=== PATIENT | male | born 1960 | race Caucasian/White ===

== ENCOUNTER 2017-01-30 19:22 | Emergency (ER) | payer OTHER | END 2017-01-30 23:20 | disposition home or self-care (01) | LOC: ER 19:22 | DX: S80.01XA Contusion of right knee, initial encounter (principal); W19.XXXA Unspecified fall, initial encounter; Y92.009 Unspecified place in unspecified non-institutional (private) residence as the place of occurrence of the external cause; Q72.0 Congenital complete absence of lower limb; Q33.3 Agenesis of lung; Q60.0 Renal agenesis, unilateral; Z79.899 Other long term (current) drug therapy; Z88.1 Allergy status to other antibiotic agents; Z88.8 Allergy status to other drugs, medicaments and biological substances | CPT/HCPCS: 73564; 73700; 99283-25 ==

== ENCOUNTER 2017-02-21 19:15 | Emergency (ER) | payer OTHER | END 2017-02-21 20:46 | disposition home or self-care (01) | LOC: ER 19:15 | DX: S69.92XA Unspecified injury of left wrist, hand and finger(s), initial encounter (principal); X50.0XXA Overexertion from strenuous movement or load, initial encounter; Y93.E9 Activity, other interior property and clothing maintenance; Y92.009 Unspecified place in unspecified non-institutional (private) residence as the place of occurrence of the external cause; J45.909 Unspecified asthma, uncomplicated; Z87.442 Personal history of urinary calculi; Z88.0 Allergy status to penicillin; Z88.1 Allergy status to other antibiotic agents; Z79.899 Other long term (current) drug therapy | CPT/HCPCS: 73110; 99070; 99283-25 ==